=== PATIENT | female | born 1985 | race Caucasian/White ===

== ENCOUNTER 2020-06-17 11:09 | Inpatient (IN) | payer BC, MEDICAID ==
[2020-06-17] MEDS ORDERED: Morphine PF 10 MG/10 ML SDV ONE (11:33)
[2020-06-17] MEDS ORDERED: Sodium Chloride 0.9% 2.5 ML Syringe FLUSH PRN (11:45)
[2020-06-17] MEDS ORDERED: Oxytocin/0.9 % Sodium Chloride 30 UNIT/500 ML BAG IV SCH (11:45)
[2020-06-17] MEDS ORDERED: ceFAZolin 2 GM in Premix Bag 1 BAG IV ONE (11:45)
[2020-06-17] MEDS ORDERED: Sodium Chloride 0.9% 10 ML Syringe FLUSH PRN (11:45)
[2020-06-17] MEDS ORDERED: Lactated Ringers 1,000 ML IV SCH ×2 (11:45→13:45)
[2020-06-17] MEDS ORDERED: Sodium Chloride 0.9% 10 ML SDV IV PRN (11:45)
[2020-06-17] MEDS ORDERED: Citric Acid/Sodium Citrate Solution 30 ML Cup PO ONE (11:45)
[2020-06-17] MEDS ORDERED: Octyl 2-Cyanoacrylate 1 Tube ONE (11:49)
--- NOTE | 2020-06-17 11:49 | PCM.PREANE ---
Preanesthetic Assessment - Anesthesia/Transfusion/Family Hx Family History of Anesthesia Reaction: No Transfusion History: No Prior Transfusion(s) - Physical Assessment NPO Status Date: 06/17/20 NPO Status Time: 00:05 Height: 1.77 m Weight: 106.141 kg ASA Class: 2 - Allergies Allergies/Adverse Reactions: Allergies Allergy/AdvReac Type Severity Reaction Status Date / Time No Known Allergies Allergy Verified 06/16/20 17:00 - Acknowledgements Anesthesia Type Planned: Spinal Pt an Appropriate Candidate for the Planned Anesthesia: Yes Alternatives and Risks of Anesthesia Discussed w Pt/Guardian: Yes Pt/Guardian Understands and Agrees with Anesthesia Plan: Yes PreAnesthesia Questionnaire HEENT History: Reports: Other (See Below) Other HEENT History: wears glasses, has a lower permanent dental retainer 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: Neurological History: Reports: Concussion Psychiatric History: Reports: Anxiety, Depression Endocrine/Metabolic History: Reports: Obesity/BMI 30+ - Past Surgical History Head Surgeries/Procedures: Reports: None GI Surgical History: Reports: Other (See Below) Other GI Surgeries/Procedures: removal of abdominal mass Female Surgical History: Reports: Section Other Female Surgeries/Procedures: previous x2 - SUBSTANCE USE Tobacco Use Status *Q: Former Tobacco User Tobacco Use Within Last Twelve Months: Cigarettes Recreational Drug Use History: No - HOME MEDS Home Medications: Home Meds FLUoxetine HCl [Fluoxetine HCl] 60 mg PO QAM 06/16/20 [History] Omeprazole Magnesium [Prilosec Otc] 20 mg PO QAM 06/16/20 [History] Pnv No.95/Ferrous Fum/Folic AC [ Vitamin Tablet] 1 tab PO DAILY 06/16/20 [History] - CURRENT (IN HOUSE) MEDS Current Meds: Current Medications Discontinued Medications Morphine Sulfate (Morphine Pf 10 Mg/10 Ml Sdv) Confirm Administered Dose 10 mg .ROUTE .STK-MED ONE Stop: 06/17/20 11:34
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
[2020-06-17] MEDS ORDERED: Ondansetron 4 MG/2 ML SDV ONE (12:31)
[2020-06-17] MEDS ORDERED: Phenylephrine 1% 10 MG/ML SDV ONE (12:31)
[2020-06-17] MEDS ORDERED: Ketorolac 30 MG/ML SDV ONE (12:31)
[2020-06-17] MEDS ORDERED: Oxytocin 10 Units/1 ML SDV ONE (12:31)
[2020-06-17] MEDS ORDERED: Acetaminophen/oxyCODONE 325-5 MG Tab PO PRN (13:34)
[2020-06-17] MEDS ORDERED: Tranexamic Acid 1,000 MG in Sodium Chloride 0.9% 100 ML IV PRN (13:34)
[2020-06-17] MEDS ORDERED: Lanolin 100% Cream 7 GM Tube TOP PRN (13:34)
[2020-06-17] MEDS ORDERED: Misoprostol 200 MCG Tab RECTAL PRN (13:34)
[2020-06-17] MEDS ORDERED: Methylergonovine 0.2 MG/1 ML Amp IM PRN (13:34)
[2020-06-17] MEDS ORDERED: Oxytocin 10 Units/1 ML SDV IM PRN (13:34)
[2020-06-17] MEDS ORDERED: Ondansetron 4 MG/2 ML SDV IVPUSH PRN (13:34)
[2020-06-17] MEDS ORDERED: Bisacodyl 10 MG Supp RECTAL PRN (13:34)
--- NOTE | 2020-06-17 13:37 | PCM.OPNOTE ---
- General Post-Op/Procedure Note Date of Surgery/Procedure: 06/17/20 Operative Procedure(s): Repeat C/section. Post-Op Diagnosis: Same Anesthesia Technique: Spinal Primary Surgeon: Zeus Avendaño Production Operator: Doreen Betancourt EBL in mLs: 700 Complications: None Condition: Good
[2020-06-17] MEDS: Ketorolac 30 MG/ML SDV IVPUSH SCH ×2 (14:00→21:03)
--- NOTE | 2020-06-17 14:36 | PCM.POSTAN ---
POST ANESTHESIA ASSESSMENT - MENTAL STATUS Mental Status: Alert - VITAL SIGNS Vital Signs: Last Vital Signs Temp 36.4 C 06/17/20 14:00 Pulse 78 06/17/20 14:30 Resp 13 06/17/20 14:30 BP 102/67 06/17/20 14:30 Pulse Ox 98 06/17/20 14:30 - RESPIRATORY Respiratory Status: Respiratory Rate WNL - CARDIOVASCULAR CV Status: Pulse Rate WNL - GASTROINTESTINAL GI Status: No Symptoms - POST OP HYDRATION Hydration Status: Adequate & Stable
[2020-06-17] MEDS: diphenhydrAMINE 50 MG/ML SDV IVPUSH PRN ×2 (17:19→23:46)
[2020-06-17] MEDS: Nalbuphine 10 MG/1 ML Vial IVPUSH PRN ×2 (18:45→21:33)
[2020-06-17] MEDS: Docusate Sodium 100 MG Cap PO SCH (21:02)
[2020-06-18] MEDS: Ketorolac 30 MG/ML SDV IVPUSH SCH ×3 (02:41→16:30)
[2020-06-18] MEDS: Nalbuphine 10 MG/1 ML Vial IVPUSH PRN (02:58)
[2020-06-18] MEDS: Docusate Sodium 100 MG Cap PO SCH (09:00)
--- NOTE | 2020-06-18 09:31 | PCM48HPAN ---
Post Anesthesia Note - EVALUATION WITHIN 48HRS OF ANESTHETIC Vital Signs in Normal Range: Yes Patient Participated in Evaluation: Yes Respiratory Function Stable: Yes Airway Patent: Yes Cardiovascular Function Stable: Yes Hydration Status Stable: Yes Pain Control Satisfactory: Yes Nausea and Vomiting Control Satisfactory: Yes Mental Status Recovered: Yes Vital Signs: Last Vital Signs Temp 36.8 C 06/17/20 21:00 Pulse 88 06/18/20 07:00 Resp 16 06/18/20 07:00 BP 117/66 06/18/20 06:00 Pulse Ox 98 06/18/20 07:00
--- NOTE | 2020-06-18 09:59 | PCM.PNPP ---
- General Info Date of Service: 06/18/20 Functional Status: Reports: Pain Controlled - Review of Systems General: Reports: No Symptoms HEENT: Reports: No Symptoms Pulmonary: Reports: No Symptoms Cardiovascular: Reports: No Symptoms Gastrointestinal: Reports: No Symptoms Genitourinary: Reports: No Symptoms Musculoskeletal: Reports: No Symptoms Skin: Reports: No Symptoms Neurological: Reports: No Symptoms Psychiatric: Reports: No Symptoms - General Info Date of Service: 06/18/20 - Patient Data Vital Signs - Most Recent: Last Vital Signs Temp 36.8 C 06/17/20 21:00 Pulse 88 06/18/20 07:00 Resp 16 06/18/20 07:00 BP 117/66 06/18/20 06:00 Pulse Ox 98 06/18/20 07:00 Weight - Most Recent: 107.048 kg I&O - Last 24 Hours: Intake & Output 06/17/20 06/18/20 06/18/20 22:59 06:59 14:59 Intake Total 2000 Output Total 1500 Balance 500 Lab Results - Last 24 Hours: Laboratory Results - last 24 hr 06/17/20 06/18/20 Range/Units 11:45 05:16 Hgb 11.2 L (12.0-16.0) g/dL Hct 34.0 L (36.0-46.0) % Blood Type O POSITIVE Antibody Screen NEGATIVE Med Orders - Current: Current Medications Bisacodyl (Bisacodyl 10 Mg Supp) 10 mg RECTAL ONETIME PRN PRN Reason: Constipation Diphenhydramine HCl (Diphenhydramine 50 Mg/Ml Sdv) 25 mg IVPUSH Q6H PRN PRN Reason: Itching or Nausea Last Admin: 06/17/20 23:46 Dose: 25 mg Documented by: Docusate Sodium (Docusate Sodium 100 Mg Cap) 100 mg PO BID MIKE Last Admin: 06/17/20 21:02 Dose: 100 mg Documented by: Emollient Ointment (Lanolin 100% Cream 7 Gm Tube) 0 gm TOP ASDIRECTED PRN PRN Reason: Sore Nipples Lactated Ringer's (Ringers, Lactated) 1,000 mls @ 500 mls/hr IV BOLUS [facility] Oxytocin/Sodium Chloride (Oxytocin 30 Unit/500 Ml-Ns) 30 unit in 500 mls @ 250 mls/hr IV TITRATE [facility] Lactated Ringer's (Ringers, Lactated) 1,000 mls @ 125 mls/hr IV ASDIRECTED [facility] Tranexamic Acid 1,000 mg/ (Sodium Chloride) 110 mls @ 660 mls/hr IV ONETIME PRN PRN Reason: Bleeding Ibuprofen (Ibuprofen 800 Mg Tab) 800 mg PO Q8H PRN PRN Reason: mild pain or fever Ketorolac Tromethamine (Ketorolac 30 Mg/Ml Sdv) 30 mg IVPUSH Q6H [facility] Stop: 06/18/20 13:46 Last Admin: 06/18/20 02:41 Dose: 30 mg Documented by: Methylergonovine Maleate (Methylergonovine 0.2 Mg/1 Ml Amp) 0.2 mg IM ONETIME PRN PRN Reason: Excessive Vaginal Bleeding Misoprostol (Misoprostol 200 Mcg Tab) 1,000 mcg RECTAL ONETIME PRN PRN Reason: excessive bleeding Nalbuphine HCl (Nalbuphine 10 Mg/1 Ml Vial) 5 mg IVPUSH Q3H PRN PRN Reason: Itching Last Admin: 06/18/20 02:58 Dose: 5 mg Documented by: Ondansetron HCl (Ondansetron 4 Mg/2 Ml Sdv) 4 mg IVPUSH Q4H PRN PRN Reason: Nausea/Vomiting Oxycodone/Acetaminophen (Acetaminophen/Oxycodone 325-5 Mg Tab) 1 tab PO Q4H PRN PRN Reason: Pain (moderate 4-6) Oxycodone/Acetaminophen (Acetaminophen/Oxycodone 325-5 Mg Tab) 2 tab PO Q4H PRN PRN Reason: Pain (moderate 4-6) Oxytocin (Oxytocin 10 Units/1 Ml Sdv) 10 unit IM ASDIRECTED PRN PRN Reason: Excessive Vaginal Bleeding Sodium Chloride (Sodium Chloride 0.9% 10 Ml Syringe) 10 ml FLUSH ASDIRECTED PRN PRN Reason: Keep Vein Open Sodium Chloride (Sodium Chloride 0.9% 2.5 Ml Syringe) 2.5 ml FLUSH ASDIRECTED PRN PRN Reason: Keep Vein Open Sodium Chloride (Sodium Chloride 0.9% 10 Ml Sdv) 10 ml IV ASDIRECTED PRN PRN Reason: IV Use Discontinued Medications Citric Acid/Sodium Citrate (Citric Acid/Sodium Citrate Solution 30 Ml Cup) 30 ml PO ONETIME ONE Stop: 06/17/20 11:46 Last Admin: 06/17/20 15:10 Dose: Not Given Documented by: Cefazolin Sodium/Dextrose 2 gm (/ Premix) 50 mls @ 100 mls/hr IV ONETIME ONE Stop: 06/17/20 12:14 Last Admin: 06/17/20 15:09 Dose: Not Given Documented by: Ketorolac Tromethamine (Ketorolac 30 Mg/Ml Sdv) Confirm Administered Dose 30 mg .ROUTE .STK-MED ONE Stop: 06/17/20 12:32 Morphine Sulfate (Morphine Pf 10 Mg/10 Ml Sdv) Confirm Administered Dose 10 mg .ROUTE .STK-MED ONE Stop: 06/17/20 11:34 Octyl Cyanoacrylate (Octyl 2-Cyanoacrylate 1 Tube) Confirm Administered Dose 1 applic .ROUTE .STK-MED ONE Stop: 06/17/20 11:50 Last Admin: 06/17/20 15:10 Dose: Not Given Documented by: Ondansetron HCl (Ondansetron 4 Mg/2 Ml Sdv) Confirm Administered Dose 4 mg .ROUTE .STK-MED ONE Stop: 06/17/20 12:32 Oxytocin (Oxytocin 10 Units/1 Ml Sdv) Confirm Administered Dose 20 unit .ROUTE .STK-MED ONE Stop: 06/17/20 12:32 Phenylephrine HCl (Phenylephrine 1% 10 Mg/Ml Sdv) Confirm Administered Dose 10 mg .ROUTE .STK-MED ONE Stop: 06/17/20 12:32 - Infant Interaction Infant Disposition, : in Room with Family Infant Interaction: Holding Feeding: Attempted ; Nursed Fair/Poor Support Person: Mother - Recovery Exam Fundal Tone: Firm Fundal Level: 1 Fingerbreadths Below Umbilicus Fundal Placement: Midline Lochia Amount: Small Lochia Color: Rubra/Red Perineum Description: Intact, Minimal Bruising/Swelling Episiotomy/Laceration: None Bladder Status: Voiding Urinary Elimination: Indwelling Catheter - Exam General: Alert, Oriented HEENT: Pupils Equal Neck: Supple Lungs: Clear to Auscultation, Normal Respiratory Effort Cardiovascular: Regular Rate, Regular Rhythm GI/Abdominal Exam: Normal Bowel Sounds, Soft, Non-Tender, No Organomegaly, No Distention, No Abnormal Bruit, No Mass, Pelvis Stable Extremities: Normal Inspection, Normal Range of Motion, Non-Tender, No Pedal Edema, Normal Capillary Refill Skin: Warm, Dry, Intact Wound/Incisions: Healing Well Neurological: No New Focal Deficit Psy/Mental Status: Alert, Normal Affect, Normal Mood - Problem List Review Problem List Initiated/Reviewed/Updated: Yes - My Orders Last 24 Hours: My Active Orders 06/17/20 11:45 Lactated Ringers [Ringers, Lactated] 1,000 ml IV BOLUS Oxytocin/0.9 % Sodium Chloride [Oxytocin 30 Unit/500 ML-NS] 30 unit in 500 ml IV TITRATE Sodium Chloride 0.9% [Normal Saline] 10 ml IV ASDIRECTED PRN Sodium Chloride 0.9% [Saline Flush] 10 ml FLUSH ASDIRECTED PRN Sodium Chloride 0.9% [Saline Flush] 2.5 ml FLUSH ASDIRECTED PRN Resuscitation Status Routine 06/17/20 11:46 Up ad Tamy [RC] ASDIRECTED Peripheral IV Insertion Adult [OM.PC] Routine Schedule Procedure [COMM] Per Unit Routine 06/17/20 11:48 Notify Provider Vital Signs [RC] PRN 06/17/20 13:34 Patient Status [ADT] Routine Ambulate [RC] PER UNIT ROUTINE Communication Order [RC] PER UNIT ROUTINE Communication Order [RC] Per Unit Routine May Shower [RC] ASDIRECTED RT Incentive Spirometry [RC] Q2HWA Acetaminophen/oxyCODONE [Percocet 325-5 MG] 1 tab PO Q4H PRN Acetaminophen/oxyCODONE [Percocet 325-5 MG] 2 tab PO Q4H PRN Ibuprofen [Motrin] 800 mg PO Q8H PRN Lanolin [Lansinoh HPA] See Dose Instructions TOP ASDIRECTED PRN Methylergonovine [Methergine] 0.2 mg IM ONETIME PRN Ondansetron [Zofran] 4 mg IVPUSH Q4H PRN Oxytocin [Pitocin] 10 unit IM ASDIRECTED PRN Tranexamic Acid [Cyklokapron] 1,000 mg Sodium Chloride 0.9% [Normal Saline] 100 ml IV ONETIME bisacodyL [Dulcolax] 10 mg RECTAL ONETIME PRN diphenhydrAMINE [Benadryl] 25 mg IVPUSH Q6H PRN miSOPROStoL [Cytotec] 1,000 mcg RECTAL ONETIME PRN Assess Lochia [WOMSER] Per Unit Routine Assess Uterine Involution [WOMSER] Per Unit Routine Breast Pump [WOMSER] Per Unit Routine Peripheral IV Discontinue [OM.PC] Routine Sequential Compression Device [OM.PC] Per Unit Routine 06/17/20 13:35 Antiembolic Devices [RC] PER UNIT ROUTINE 06/17/20 13:45 Ketorolac [Toradol] 30 mg IVPUSH Q6H Lactated Ringers [Ringers, Lactated] 1,000 ml IV ASDIRECTED 06/17/20 21:00 Docusate Sodium [Colace] 100 mg PO BID - Assessment Assessment:: S/P C/section doing well - Plan Plan:: Term S/P 2 C/section admitted for electiverepeat C/section.
[2020-06-18] MEDS ORDERED: Ketorolac 30 MG/ML SDV ONE (17:23)
[2020-06-18] MEDS: Acetaminophen/oxyCODONE 325-5 MG Tab PO PRN (17:53)
[2020-06-19] MEDS: Docusate Sodium 100 MG Cap PO SCH ×2 (01:51→09:37)
[2020-06-19] MEDS: Ibuprofen 800 MG Tab PO PRN ×2 (01:51→13:30)
[2020-06-19] MEDS ORDERED: Acetaminophen/HYDROcodone 325-5 MG Tab ONE (14:57)
[2020-06-19] MEDS: Acetaminophen/oxyCODONE 325-5 MG Tab PO PRN (15:29)
--- NOTE | 2020-06-20 08:24 | OR ---
SURGEON: Zeus Avendaño MD DATE OF PROCEDURE: 06/17/2020 PREOPERATIVE DIAGNOSES: Intrauterine at 39+ weeks, previous section x2. POSTOPERATIVE DIAGNOSES: Intrauterine at 39+ weeks, previous section x2. OPERATION PERFORMED: Repeat low-transverse section. PRIMARY SURGEON: Zeus Avendaño MD ELEMENT SETTER: Doreen Betancourt, certified nurse incinerator attendant. ANESTHESIA: Spinal. ESTIMATED BLOOD LOSS: 650 to 700 mL. COMPLICATIONS: None. FINDING: Female fetus. score reported to be 8 and 9. Normal uterus, tubes, and ovaries. INDICATIONS FOR SURGERY: This patient has had previous section x2. She is 40. She is followed in our clinic mainly by our nurse midwifery service. She is admitted for elective repeat section. PROCEDURE IN DETAIL: The patient brought to the OR, properly identified, and after adequate level of spinal anesthesia with a Thrasher catheter in the bladder, the patient was prepped and draped in sterile fashion as usual. Low-transverse Pfannenstiel skin incision done through the old scar. The Demetria fascia and rectus fascia were opened in direction of the incision. The two recti were . Peritoneal cavity was entered. A bladder flap was raised in the usual manner pushing the bladder away from the lower uterine segment. Low-transverse uterine incision extended manually with hand, fetus was delivered. It was in the vertex position, cried immediately. scores were reported to be 8 and 9. The placenta delivered spontaneous, complete, and intact, and repair of the lower uterine segment was done with 2-0 Vicryl continuous interlocking in 2 layers. Reperitonealization done with 3-0 Vicryl continuous, and then the peritoneal cavity evacuated completely from all blood and blood clot and closed with 3-0 Vicryl continuous. The rectus fascia was closed with #1 PDS double-strand continuous, and then Demetria fascia with 3-0 Vicryl continuous. The skin closed with 3-0 StrataFix in a subcuticular fashion and Dermabond. Instrument and sponge count was correct. The patient tolerated the procedure well, went to recovery room in stable general condition. MADI / BILLY /[id number]
== END 2020-06-19 15:55 | disposition home or self-care (01) | DRG 540 ==
LOC: MW.OB 11:09 → OBSVTOIN 13:34 → MW.OB 18:27
PROVIDERS: ADMIT Obstetrics & Gynecology; ATTEND Obstetrics & Gynecology
PROC: 10D00Z1 Extraction of Products of Conception, Low, Open Approach (ICD-10-PCS; principal; 2020-06-17)
DX: O34.211 Maternal care for low transverse scar from previous cesarean delivery (principal); Z37.0 Single live birth; O99.62 Diseases of the digestive system complicating childbirth; K21.9 Gastro-esophageal reflux disease without esophagitis; O99.214 Obesity complicating childbirth; E66.9 Obesity, unspecified; O99.344 Other mental disorders complicating childbirth; F41.9 Anxiety disorder, unspecified; F32.9 Major depressive disorder, single episode, unspecified; Z3A.39 39 weeks gestation of pregnancy; Z87.891 Personal history of nicotine dependence
CPT/HCPCS: 36415; 59025; 85014; 85018; 86850; 86900; 86901; A9270-GY; J1200; J1885; J2270; J2300; J2370; J2405; J2590

== ENCOUNTER 2021-04-08 09:09 | Emergency (ER) | payer BC ==
[2021-04-08] MEDS ORDERED: Tetracaine HCl/PF 0.5% 4 ML Bottle EYEBOTH STA (09:25)
[2021-04-08] MEDS ORDERED: Fluorescein 1 MG Ophth Strip EYEBOTH ONE (09:35)
[2021-04-08] MEDS ORDERED: Erythromycin Base 0.5% Ophth Oint 1 GM Tube EYERT STA (10:28)
== END 2021-04-08 10:46 | disposition home or self-care (01) ==
LOC: MW.ED 09:09
DX: H57.11 Ocular pain, right eye (principal); E66.9 Obesity, unspecified; Z68.33 Body mass index [BMI] 33.0-33.9, adult
CPT/HCPCS: 99283; A9270

== ENCOUNTER 2021-05-23 09:42 | Day surgery (SDC) | payer BC ==
[2021-05-22 16:58] LABS: BLOOD UREA NITROGEN,BUN 16 mg/dL (7.0-18.0); CARBON DIOXIDE,CO2 28.8 mmol/L (21.0-32.0); CHLORIDE,CL 100 mmol/L (98-107); GLUCOSE RANDOM 86 mg/dL (74-106); POTASSIUM,K 3.9 mmol/L (3.5-5.1); SODIUM,NA 137 mmol/L (136-145)
[~2021-05-23 09:42] MED LIST: Albuterol 0.083% 2.5 MG/3 ML Neb Soln NEB PRN; Metoclopramide 10 MG/2 ML SDV IVPUSH PRN; Morphine 4 MG/ML VIAL IVPUSH PRN; Naloxone 0.4 MG/ML SDV IVPUSH PRN; Ondansetron 4 MG/2 ML SDV IVPUSH PRN; Sodium Chloride 0.9% 10 ML Syringe FLUSH PRN; Sodium Chloride 0.9% 2.5 ML Syringe FLUSH PRN; Sodium Chloride 0.9% 20 ML SDV IV PRN; ceFAZolin 2 GM in Premix Bag 1 BAG IV ONE
[2021-05-23] MEDS ORDERED: Midazolam 1 MG/ML 2 ML SDV ONE (10:15)
[2021-05-23] MEDS ORDERED: Propofol 200 MG/20 ML SDV ONE (10:15)
[2021-05-23] MEDS ORDERED: fentaNYL 250 MCG/5 ML SDV ONE (10:16)
[2021-05-23] MEDS ORDERED: Rocuronium Bromide 50 MG/5 ML Syringe ONE (10:17)
[2021-05-23] MEDS ORDERED: Ondansetron 4 MG/2 ML SDV ONE (10:17)
[2021-05-23] MEDS ORDERED: Scopolamine 1.5 MG Transdermal Patch ONE (10:17)
[2021-05-23] MEDS: Lactated Ringers 1,000 ML IV SCH ×2 (10:17→14:27)
[2021-05-23] MEDS ORDERED: Sugammadex Sodium 200 MG/2 ML VIAL ONE (10:17)
[2021-05-23] MEDS ORDERED: Scopolamine 1.5 MG Transdermal Patch TOP ONE (10:27)
[2021-05-23] MEDS ORDERED: Fluorescein 5 ML Vial ONE (10:53)
[2021-05-23] MEDS ORDERED: Glycopyrrolate 0.2 MG/ML SDV ONE (12:32)
[2021-05-23] MEDS ORDERED: Ketorolac 30 MG/ML SDV ONE (12:34)
[2021-05-23] MEDS ORDERED: Octyl 2-Cyanoacrylate 1 Tube ONE (12:42)
[2021-05-23] MEDS ORDERED: Ketorolac 30 MG/ML SDV IVPUSH ONE (12:53)
[2021-05-23] MEDS ORDERED: Ondansetron 4 MG/2 ML SDV IVPUSH PRN (12:53)
[2021-05-23] MEDS ORDERED: Acetaminophen/oxyCODONE 325-5 MG Tab PO PRN (12:53)
[2021-05-23] MEDS ORDERED: Promethazine 25 MG/ML SDV IM PRN (12:53)
[2021-05-23] MEDS: HYDROmorphone 1 MG/ML Syringe IVPUSH PRN ×2 (13:11→13:38)
[2021-05-23] MEDS: fentaNYL 100 MCG/2 ML SDV IVPUSH PRN ×2 (13:17→13:26)
[2021-05-23] MEDS: Morphine 4 MG/ML VIAL IVPUSH PRN ×2 (14:26→18:51)
[2021-05-23] MEDS: Acetaminophen/oxyCODONE 325-5 MG Tab PO PRN ×2 (17:04→22:06)
[2021-05-24] MEDS: Acetaminophen/oxyCODONE 325-5 MG Tab PO PRN ×2 (03:21→09:59)
[2021-05-24] MEDS: Ketorolac 30 MG/ML SDV IVPUSH PRN ×2 (05:44→11:06)
[2021-05-24 06:25] LABS: BLOOD UREA NITROGEN,BUN 9 mg/dL (7.0-18.0); CHLORIDE,CL 103 mmol/L (98-107); GLUCOSE RANDOM 113 mg/dL (74-106); SODIUM,NA 138 mmol/L (136-145)
== END 2021-05-24 15:55 | disposition home or self-care (01) ==
LOC: MW.SDS 09:42 → MW.MS 12:53 → MW.SDS 05-24 15:55
PROVIDERS: ATTEND Obstetrics & Gynecology
DX: N80.0 Endometriosis of uterus (principal); K66.0 Peritoneal adhesions (postprocedural) (postinfection); N83.8 Other noninflammatory disorders of ovary, fallopian tube and broad ligament; N83.202 Unspecified ovarian cyst, left side; N80.1 Endometriosis of ovary; F41.9 Anxiety disorder, unspecified; E55.9 Vitamin D deficiency, unspecified; Z88.5 Allergy status to narcotic agent; F32.A Depression, unspecified; K21.9 Gastro-esophageal reflux disease without esophagitis; E66.9 Obesity, unspecified; Z79.899 Other long term (current) drug therapy; Z68.36 Body mass index [BMI] 36.0-36.9, adult; Z98.890 Other specified postprocedural states; Z87.891 Personal history of nicotine dependence
CPT/HCPCS: 36415; 58571; 80048; 84703; 85025; 85027; 86850; 86900; 86901; A9270; J0131; J0330; J0690; J1170; J1885; J2250; J2270; J2704; J3010; J3490; J7120; 00840; J2405

== ENCOUNTER 2022-09-11 17:25 | Emergency (ER) | payer OTHER ==
[2022-09-11 19:14] LABS: BASOPHILS ABSOLUTE AUTO 0.1 K/uL (0.0-0.1); BASOPHILS PERCENT AUTO 0.8 % (0.0-1.5); EOSINOPHILS ABSOLUTE AUTO 0.2 K/uL (0.0-0.7); EOSINOPHILS PERCENT AUTO 2.2 % (0.0-7.0); HEMATOCRIT 42.1 % (36.0-46.0); HEMOGLOBIN 13.8 g/dL (12.0-16.0); LYMPHOCYTES ABSOLUTE AUTO 2.8 K/uL (0.6-2.4); LYMPHOCYTES PERCENT AUTO 28.3 % (16.0-40.0); MEAN CORPUSCULAR HGB CONC 32.8 g/dL (31.0-37.0); MEAN CORPUSCULAR VOLUME 88.4 fL (80.0-98.0); MONOCYTES ABSOLUTE AUTO 0.6 K/uL (0.0-0.8); MONOCYTES PERCENT AUTO 5.9 % (0.0-15.0); NEUTROPHILS ABSOLUTE AUTO 6.3 K/uL (1.4-5.7); NEUTROPHILS PERCENT AUTO 62.8 % (48.0-80.0); NRBC ABSOLUTE 0 K/uL; PLATELET COUNT,PLT 418 K/uL (150-400); RED BLOOD CELL COUNT 4.76 M/uL (4.30-5.90); WHITE BLOOD CELL COUNT,WBC 10.03 K/uL (4.0-11.0)
[2022-09-11 19:21] LABS: A/G RATIO 1.1 (0.9-1.6); ALBUMIN 4.1 g/dL (3.4-5.0); BILIRUBIN TOTAL 0.3 mg/dL (0.2-1.0); CARBON DIOXIDE,CO2 22.1 mmol/L (21.0-32.0); CREATININE 0.7 mg/dL (0.6-1.0); EST CRCL DRUG DOSING (CG) 117.23 mL/min; MAGNESIUM 1.8 mg/dL (1.8-2.4); POTASSIUM,K 3.9 mmol/L (3.5-5.1); PROTEIN TOTAL,TP 7.7 g/dL (6.4-8.2)
== END 2022-09-11 20:35 | disposition home or self-care (01) ==
LOC: MW.ED 17:25
DX: R10.11 Right upper quadrant pain (principal); E66.9 Obesity, unspecified; Z88.5 Allergy status to narcotic agent; Z68.39 Body mass index [BMI] 39.0-39.9, adult
CPT/HCPCS: 36415; 80053; 83690; 83735; 84703; 85025; 99283; 99284

== ENCOUNTER 2023-04-13 15:11 | Emergency (ER) | payer MEDICAID, OTHER ==
[2023-04-13 16:00] LABS: BASOPHILS ABSOLUTE AUTO 0.09 K/uL (0.00-0.20); BASOPHILS PERCENT AUTO 1.2 % (0.0-1.0); EOSINOPHILS ABSOLUTE AUTO 0.23 K/uL (0.00-0.45); HEMATOCRIT 39.7 % (37.0-47.0); HEMOGLOBIN 13.8 g/dL (12.0-16.0); IMMATURE GRAN ABSOLUTE AUTO 0.01 K/uL (0.00-0.05); IMMATURE GRAN PERCENT AUTO 0.1 % (0.0-0.4); LYMPHOCYTES ABSOLUTE AUTO 2.08 K/uL (1.00-4.80); LYMPHOCYTES PERCENT AUTO 27.5 % (24.0-44.0); MEAN CORPUSCULAR HEMOGLOBIN 30.1 pg (28.0-32.0); MEAN CORPUSCULAR HGB CONC 34.8 g/dL (32.0-36.0); MEAN CORPUSCULAR VOLUME 86.5 fL (83.0-99.0); MEAN PLATELET VOLUME 9.4 fL (9.4-12.3); MONOCYTES ABSOLUTE AUTO 0.51 K/uL (0.00-0.80); MONOCYTES PERCENT AUTO 6.7 % (0.0-8.0); NEUTROPHILS ABSOLUTE AUTO 4.64 K/uL (1.80-7.70); NEUTROPHILS PERCENT AUTO 61.5 % (41.0-71.0); PLATELET COUNT,PLT 386 K/uL (150-400); RED BLOOD CELL COUNT 4.59 M/uL (4.10-5.30); WHITE BLOOD CELL COUNT,WBC 7.56 K/uL (3.9-11.3)
[2023-04-13 16:17] LABS: INR 0.98 (0.86-1.11); PTT,PARTIAL THROMBOPLSTIN TIME 32.5 SEC (23.9-30.7)
[2023-04-13] MEDS: Sodium Chloride 0.9% 1,000 ML IV STA (16:24)
[2023-04-13] MEDS: Sodium Chloride 0.9% 10 ML Syringe FLUSH PRN (16:25)
[2023-04-13 16:27] LABS: A/G RATIO 1.3 (0.9-1.6); ALANINE AMINOTRANSFERASE,ALT 34 IU/L (14-63); ALBUMIN 4.2 g/dL (3.4-5.0); ALKALINE PHOSPHATASE 87 U/L (46-116); ASPARTATE AMNIOTRANSFERASE,AST 7 IU/L (15-37); BILIRUBIN TOTAL 0.5 mg/dL (0.2-1.0); BLOOD UREA NITROGEN,BUN 10 mg/dL (7.0-18.0); CALCIUM 9.4 mg/dL (8.5-10.1); CARBON DIOXIDE,CO2 24.1 mmol/L (21.0-32.0); CHLORIDE,CL 100 mmol/L (98-107); CREATININE 0.8 mg/dL (0.6-1.0); GLUCOSE RANDOM 159 mg/dL (74-106); POTASSIUM,K 3.8 mmol/L (3.5-5.1); PROTEIN TOTAL,TP 7.5 g/dL (6.4-8.2); SODIUM,NA 138 mmol/L (136-145)
[2023-04-13 16:32] LABS: ESTIMATED GFR 98 mL/min (>60)
[2023-04-13] MEDS: Iopamidol 755 Mg/ML 100 ML Bottle IVPUSH STA (16:54)
[2023-04-13 16:55] LABS: APPEARANCE,URINE CLEAR; BILIRUBIN,URINE NEGATIVE (NEGATIVE); COLOR,URINE YELLOW; GLUCOSE,URINE NEGATIVE (NEGATIVE); KETONES,URINE NEGATIVE (NEGATIVE); LEUKOCYTE ESTERASE,URINE NEGATIVE (NEGATIVE); NITRITE,URINE NEGATIVE (NEGATIVE); OCCULT BLOOD,URINE NEGATIVE (NEGATIVE); PROTEIN,URINE NEGATIVE (NEGATIVE); UROBILINOGEN,URINE 0.2 EU/dL (<2.0)
[2023-04-13 17:05] LABS: AMPHETAMINES SCREEN, URINE NEGATIVE (CUTOFF=500); BARBITURATE SCREEN,URINE NEGATIVE (CUTOFF=200); BENZODIAZEPINES SCREEN,URINE NEGATIVE (CUTOFF=150); BUPRENORPHINE SCREEN,URINE NEGATIVE (CUTOFF=10); METHADONE SCREEN, URINE NEGATIVE (CUTOFF=200); METHAMPHETAMINES SCREEN, URINE NEGATIVE (CUTOFF=500); OXYCODONE SCREEN,URINE NEGATIVE (CUT0FF=100); PCP SCREEN,URINE NEGATIVE (CUTOFF=25); THC SCREEN,URINE 20 NG/ML PRESUMPTIVE POSITIVE (CUTOFF=50)
[2023-04-13 17:37] LABS: CORONAVIRUS COVID-19 NAA NEGATIVE (NEGATIVE); INFLUENZA A NAA NEGATIVE (NEGATIVE); INFLUENZA B NAA NEGATIVE (NEGATIVE); RESPIRATORY SYNCYTIAL VIR NAA NEGATIVE (NEGATIVE)
[2023-04-13] MEDS: Meclizine 25 MG Tab PO ONE (18:54)
[2023-04-13] MEDS: Aspirin 81 MG Tab.Chew PO ONE (19:49)
[2023-04-13] MEDS: atorvaSTATin 40 MG Tab PO SCH (19:49)
== END 2023-04-13 20:18 | disposition home or self-care (01) ==
LOC: MW.ED 15:11
DX: R42 Dizziness and giddiness (principal); E66.9 Obesity, unspecified; Z90.710 Acquired absence of both cervix and uterus; Z79.899 Other long term (current) drug therapy; Z88.5 Allergy status to narcotic agent; Z68.39 Body mass index [BMI] 39.0-39.9, adult
CPT/HCPCS: 0241U; 36415; 70450; 70496; 70498; 70551; 80053; 80305; 81003; 82947; 84484; 85025; 85610; 85730; 93005; 96360; 96361; 99284; A9270; J3490; J7030; Q9967; 93010